=== PATIENT | female | born 1980 | race Caucasian/White ===

== ENCOUNTER → 2018-03-17 | Outpatient (CLI) | payer BC ==
--- NOTE | 2018-03-17 14:00 | Diagnostic Imaging Report ---
PROCEDURE: US OB SINGLE FETUS <14 WKS. TECHNIQUE: Multiple real-time grayscale images were obtained over the gravid uterus in various projections. INDICATION: dating. FINDINGS: There is an intrauterine gestational sac containing a pole. [place]-rump length measurement is 6.3 cm consistent with 12 weeks 6 days gestation. heart rate was recorded at 155 beats per minute. Gestational sac shape is within normal limits. No perigestational sac hemorrhage is seen. Adnexal evaluation does demonstrate a 3.4 cm cyst involving the left ovary. Right adnexa is unremarkable. There is no free fluid. IMPRESSION: 1. Single live IUP 12 weeks 6 days gestational age. Estimated date of confinement sonographically is 09/23/2018. 2. A 3.4 cm left ovarian cyst. Dictated by: Dictated on workstation # [id number]
== END ==
LOC: RAD 12:02
PROVIDERS: ATTEND Family Medicine
DX: Z34.91 Encounter for supervision of normal pregnancy, unspecified, first trimester (principal); Z3A.12 12 weeks gestation of pregnancy
CPT/HCPCS: 76801

== ENCOUNTER → 2018-05-13 | Outpatient (CLI) | payer BC ==
--- NOTE | 2018-05-13 16:24 | Diagnostic Imaging Report ---
INDICATION: anatomy survey. TECHNIQUE: Multiple real-time grayscale images were obtained over the gravid uterus. COMPARISON: 03/17/2018. FINDINGS: There is a single live intrauterine in cephalic presentation. The amniotic fluid volume appears visually appropriate. Placenta is anteriorly located and there is no previa. anatomy survey was performed and the following structures are visualized and normal: Cerebellum, cisterna magna, cerebral ventricles, four-chamber heart, urinary bladder, umbilical cord insertion, three-vessel cord, kidneys, spine, stomach, and all four extremities. Attempt to image the maternal adnexa was limited due to advanced gestational age. Biometrical measurements are as follows: Biparietal 5.0 cm, age 21 weeks 1 days. Head circumference 18.2 cm, age 20 weeks 4 days. Abdominal circumference 14.9 cm, age 20 weeks 2 days. Femur length 3.3 cm, age 20 weeks 3 days. Sonographic estimate age: 20 weeks 5 days. Sonographic estimated date of delivery: 09/25/18. Estimated Weight: 347 gm (+/- 51 gm). LMP percentile: 15%. heart rate: 143 beats per minute. number: 1 of 1. IMPRESSION: 1. Single live intrauterine with normal anatomy survey. 2. Fetus is at the 15th percentile for weight based on gestational age. Dictated by: Dictated on workstation # [id number]
== END ==
LOC: RAD 09:57
PROVIDERS: ATTEND Family Medicine
DX: Z36.89 Encounter for other specified antenatal screening (principal); Z3A.20 20 weeks gestation of pregnancy
CPT/HCPCS: 76805

== ENCOUNTER 2018-09-27 19:30 | Inpatient (IN) | payer BC ==
[~2018-09-27] VITALS: Ht 172.7 cm; Wt 94.3 kg
--- NOTE | 2018-09-27 19:30 | NUR ---
KAYLIE MATA presented to unit via from ED, accompanied by , with c/o INDUCTION. KAYLIE MATA weighed, gowned, voided, and to bed. EFHM and TOCO applied, VS taken. KAYLIE MATA oriented to bed controls, call light, TV, heat, and A/C controls.
--- NOTE | 2018-09-27 19:48 | NUR ---
Dr. Moon called and informed that pt has arrived. Orders received. states that if pt would like to get up and walk around monitoring can be done 15 minutes every hour after 1 hour of initial strip after Cytotec is given.
[2018-09-27] MEDS ORDERED: MISOPROSTOL 100 MCG (CYTOTEC) TAB PO ONE (20:00)
[2018-09-27] MEDS ORDERED: MINERAL OIL CONCENTRATE 99.9% 15 ML UDC TOP PRN (20:00)
[2018-09-27] MEDS ORDERED: LACTATED RINGERS 1,000 ML IV SCH (20:00)
[2018-09-27] MEDS ORDERED: D5 LR IV SOLUTION 1,000 ML IV SCH (20:06)
[2018-09-27 20:10] VITALS: BP 130/73
--- OUTSIDE RECORDS SUMMARY | 2018-09-27 20:49 | XMS REPORT ---
Author Author RAY MORRISON Organization [facility] Address [address] [place] [address] Care Team Providers Care Bag Shop Worker Name Role Phone RAY MORRISON Unavailable PROBLEMS Unknown Problems ALLERGIES No Information ENCOUNTERS Encounter Location Date Diagnosis [place] [address] [id number] [place] [address] 55613- 9587 Jun, [place] [address] 8[address]68- 2393 Jun, 25 weeks gestation of Z3A.25 [place] [id number] [place] [address] 02173- 0140 May, care in second trimester Z34.92 and 25 weeks gestation of Z3A.25 [place] [address] [place] [id number] [place] [address] 80497- 6949 May, care in second trimester Z34.92 and 19 weeks gestation of Z3A.19 [place] [id number] [place] [address] 45949- 9868 Mar, care in second trimester Z34.92 and 14 weeks gestation of Z3A.14 [place] [id number] [place] [address] 99072- 5084 Mar, Normal , first Z34.00 [place] [id number] [place] [address] 53164- 0351 Mar, [place] [id number] [place] [address] 29013- 1949 Feb, Normal , first Z34.00 ; care, first in first trimester Z34.01 and Elderly primigravida in first trimester O09.511 [facility] [address] [address] Feb, [facility] [id number] [place] [address] 15238- 4415 Feb, [facility] [id number] [place] [address] 43028- 1751 Feb, [facility] [id number] [place] [address] 33310- 7579 Feb, Encounter for test, result unknown Z32.00 [facility] [id number] [place] [address] 45448- 5992 Feb, Irritant contact dermatitis, unspecified trigger L24.9 [facility] [id number] [place] [address] 18495- 4431 May, Poison douglas L23.7 [facility] [id number] [place] [address] 93774- 5278 11 Jan, 2015 Routine gynecological examination V72.31 ; Pap test, as part of routine gynecological examination V76.2 ; Breast cancer screening V76.10 and Laboratory exam ordered as part of routine general medical examination V72.62 [facility] [address] [address]- 8790 Jan, [facility] [address] [address]- 4323 14 Nov, 2014 [facility] [address] [place] [address] 36736- 0074 13 Nov, 2014 [facility] [address] [address]- 4655 Jan, [facility] [id number] [place] [address] 11687- 7218 Jan, [facility] [address] [address]- 8607 Nov, [facility] [address] [place] [address] [place] [address] 2546 Nov, [facility] [address] [facility] [id number] [address]- 4188 May, [facility] [address] [facility] [id number] [address]- 1022 May, [facility] [address] [facility] [id number] [address]- 1458 May, [facility] [address] [facility] [id number][place] [address]- 6413 May, IMMUNIZATIONS No Known Immunizations SOCIAL HISTORY Never Assessed REASON FOR VISIT OB 4 wk f/u -- bean clements PLAN OF CARE Activity Details Follow Up 4 Weeks Reason: VITAL SIGNS Height 68 in 2018-06-15 Weight 192.0 lbs 2018-06-15 Temperature 97.2 degrees Fahrenheit 2018-06-15 BMI 29.194 kg/m2 2018-06-15 Blood pressure systolic 118 mmHg 2018-06-15 Blood pressure diastolic 76 mmHg 2018-06-15 MEDICATIONS Medication Instructions Dosage Frequency Start Date End Date Duration Status Multivitamin Active RESULTS No Results PROCEDURES Procedure Date Ordered Result Body Site URINE-NO MICRO Jun 15, 2018 GLUCOSE TEST Jun 15, 2018 VENIPUNCT, ROUTINE* Jun 15, 2018 INSTRUCTIONS MEDICATIONS ADMINISTERED No Known Medications MEDICAL (GENERAL) HISTORY Type Description Date Medical History Seasonal Allergies
--- OUTSIDE RECORDS SUMMARY | 2018-09-27 20:49 | XMS REPORT ---
Author Author RAY MORRISON Organization [facility] Address [address] [place] [address] Care Team Providers Care Watch Supervisor Name Role Phone RAY MORRISON Unavailable PROBLEMS Unknown Problems ALLERGIES No Information ENCOUNTERS Encounter Location Date Diagnosis [place] [id number] [place] [address] 36192- 6201 May, [place] [address] [place] [id number] [place] [address] 02404- 2466 Mar, care in second trimester Z34.92 and 14 weeks gestation of Z3A.14 [place] [address] [place] [id number] [place] [address] 98647- 2332 Mar, Normal , first Z34.00 [place] [address] [place] [address] 01959- 1145 Mar, [place] [address] [place] [address] [id number] [place] [address] 38296- 4999 Feb, Normal , first Z34.00 ; care, first in first trimester Z34.01 and Elderly primigravida in first trimester O09.511 [place] [address] [place] [address] 02372- 0006 Feb, [facility] [address], [place] [address]- 3082 Feb, [facility] [address] [id number] [place] [address] 34775- 6786 Feb, [facility] [address] [place] [address] 63105- 5997 Feb, Encounter for test, result unknown Z32.00 [facility] [address], [place] [address]- 9316 Feb, Irritant contact dermatitis, unspecified trigger L24.9 [facility] [address] [id number] [address]- 2797 24 May, 2016 Poison douglas L23.7 [facility] [address] [id number] [address]- 6159 11 Jan, 2015 Routine gynecological examination V72.31 ; Pap test, as part of routine gynecological examination V76.2 ; Breast cancer screening V76.10 and Laboratory exam ordered as part of routine general medical examination V72.62 [facility] [address] [place] [address] 10047- 9692 10 Jan, 2015 [facility] [address] [place] [address] 68337- 4898 14 Nov, 2014 [facility] [id number] [place] [address] 78731- 9696 Nov, [facility] [address], [place] [address]- 4110 Jan, [facility] [address], [place] [address]- 1754 Jan, [facility] [address], [place] [address]- 8932 Nov, [facility] [address], [place] [address]- 5043 Nov, [facility] [address], [place] [address]- 8563 May, [facility] [address] 7353 May, [facility] [address], [place] [address]- 3239 May, [facility] [address], [place] [address]- 9102 May, IMMUNIZATIONS No Known Immunizations SOCIAL HISTORY Never Assessed REASON FOR VISIT QNatal testing PLAN OF CARE VITAL SIGNS MEDICATIONS Unknown Medications RESULTS No Results PROCEDURES No Known procedures INSTRUCTIONS MEDICATIONS ADMINISTERED No Known Medications MEDICAL (GENERAL) HISTORY Type Description Date Medical History Seasonal Allergies
--- OUTSIDE RECORDS SUMMARY | 2018-09-27 20:49 | XMS REPORT ---
Author Author RAY MORRISON [facility] Address [address] [place] [address] Care Team Providers Care Cut Plug Packer Name Role Phone RAY MORRISON Unavailable PROBLEMS Unknown Problems ALLERGIES Substance Reaction Event Type Date Status poison douglas hives Non Drug Allergy Feb, Active ENCOUNTERS Encounter Location Date Diagnosis [facility] [id number] [place] [address] 94194- 5392 May, [facility] [id number] [place] [address] 00953- 9433 Mar, care in second trimester Z34.92 and 14 weeks gestation of Z3A.14 [facility] [id number] [place] [address] 73263- 2544 Mar, Normal , first Z34.00 [facility] [id number] [place] [address] 83883- 5429 Mar, [facility] [id number] [place] [address] 25280- 3343 Feb, Normal , first Z34.00 ; care, first in first trimester Z34.01 and Elderly primigravida in first trimester O09.511 [facility] [id number] [place] [address] 30739- 3887 Feb, [facility] [id number] [place] [address] 11218- 3985 Feb, [facility] [id number] [place] [address] 64660- 6278 Feb, [facility] [id number] [place] [address] 99584- 3748 Feb, Encounter for test, result unknown Z32.00 [facility] [address], [place] [address]- 7816 Feb, Irritant contact dermatitis, unspecified trigger L24.9 [facility] [id number] [address]- 8575 24 May, 2016 Poison douglas L23.7 [facility] [id number] [place] [address] 03761- 0887 11 Jan, 2015 Routine gynecological examination V72.31 ; Pap test, as part of routine gynecological examination V76.2 ; Breast cancer screening V76.10 and Laboratory exam ordered as part of routine general medical examination V72.62 [facility] [address] [place] [address] 68657- 2994 10 Jan, 2015 [facility] [address] [place] [address] 97107- 0302 14 Nov, 2014 [facility] [id number] [place] [address] 18252- 0329 13 Nov, 2014 [facility] [address] [place] [address] 56681- 0465 Jan, [facility] [address] [address]- 4858 Jan, [facility] [address], [place] [address]- 8130 Nov, [facility] [address], [place] [address]- 3119 Nov, [facility] [address], [place] [address]- 8701 May, [facility] [address], [place] [address]- 1301 May, [facility] [address], [place] [address]- 0768 May, [facility] [id number] [address]- 5148 May, IMMUNIZATIONS No Known Immunizations SOCIAL HISTORY Never Assessed REASON FOR VISIT OB-intake -- bean clements PLAN OF CARE Activity Details Follow Up 4 Weeks Reason: Pending Test Ultrasound : OB, Early <14 WEEKS VITAL SIGNS Height 68 in 2018-03-09 Weight 187.6 lbs 2018-03-09 Temperature 98.0 degrees Fahrenheit 2018-03-09 Heart Rate 78 bpm 2018-03-09 Respiratory Rate 18 2018-03-09 BMI 28.524 kg/m2 2018-03-09 Blood pressure systolic 120 mmHg 2018-03-09 Blood pressure diastolic 70 mmHg 2018-03-09 MEDICATIONS Medication Instructions Dosage Frequency Start Date End Date Duration Status Triamcinolone Acetonide 0.025 % Externally Once a day apply thin layer to upper chest and back 24h Feb, 10 days Not-Taking Multivitamin Active Triamcinolone Acetonide 0.1 % Externally Twice a day 1 application to affected area 12h May, Not-Taking RESULTS No Results PROCEDURES Procedure Date Ordered Result Body Site CULTURE, BACTERIA, OTHER March 09, 2018 ASSAY THYROID STIM HORMONE March 09, 2018 RUBELLA ANTIBODY March 09, 2018 URINALYSIS, AUTO, W/O SCOPE March 09, 2018 DRUG TEST PRSMV DIR OPT OBS March 09, 2018 VENIPUNCT, ROUTINE* March 09, 2018 BLOOD TYPING, ABO March 09, 2018 BLOOD TYPING, RH (D) March 09, 2018 COMPLETE CBC W/AUTO DIFF WBC March 09, 2018 No Charge March 09, 2018 URINE CULTURE/COLONY COUNT March 09, 2018 RBC ANTIBODY SCREEN March 09, 2018 TRICHOMONAS ASSAY W/OPTIC March 09, 2018 INSTRUCTIONS MEDICATIONS ADMINISTERED No Known Medications MEDICAL (GENERAL) HISTORY Type Description Date Medical History Seasonal Allergies
--- OUTSIDE RECORDS SUMMARY | 2018-09-27 20:49 | XMS REPORT ---
Author Author RAY MORRISON Organization [facility] Address [address] [place] [address] Care Team Providers Care Grinder Set Up Operator Centerless Name Role Phone RAY MORRISON Unavailable PROBLEMS Unknown Problems ALLERGIES No Information ENCOUNTERS Encounter Location Date Diagnosis [place] [id number] [place] [id number] [place] [address] 76236- 5125 Jun, [place] [address] 97703- 0815 Jun, 25 weeks gestation of Z3A.25 [place] [address] [id number] [place] [address] 34816- 1140 May, care in second trimester Z34.92 and 25 weeks gestation of Z3A.25 [place] [address] [place] [id number] [place] [address] 97899- 5661 May, care in second trimester Z34.92 and 19 weeks gestation of Z3A.19 [place] [address] [id number] [place] [address] 36575- 7888 Mar, care in second trimester Z34.92 and 14 weeks gestation of Z3A.14 [place] [address] [id number] [place] [address] 10840- 7414 Mar, Normal , first Z34.00 [place] [address] [id number] [place] [address] 46767- 8070 Mar, [place] [address] [id number] [place] [address] 51434- 5768 Feb, Normal , first Z34.00 ; care, first in first trimester Z34.01 and Elderly primigravida in first trimester O09.511 [facility] [address], [place] [address]- 5285 Feb, [facility] [address] [id number] [place] [address] 32745- 5430 Feb, [facility] [address] [id number] [place] [address] 81394- 8116 Feb, [facility] [address] [id number] [place] [address] 64501- 4571 Feb, Encounter for test, result unknown Z32.00 [facility] [address] [place] [address] [id number] [place] [address] 83796- 9250 Feb, Irritant contact dermatitis, unspecified trigger L24.9 [facility] [address] [address] [id number] [place] [address] 13277- 9827 May, Poison douglas L23.7 [facility] [address] [address] [id number] [place] [address] 21616- 3625 11 Jan, 2015 Routine gynecological examination V72.31 ; Pap test, as part of routine gynecological examination V76.2 ; Breast cancer screening V76.10 and Laboratory exam ordered as part of routine general medical examination V72.62 [facility] [address], [place] [address]- 8836 Jan, [facility] [address], [place] [address]- 2979 14 Nov, 2014 [facility] [address] [place] [address] 24468- 1767 13 Nov, 2014 [facility] [address], [place] [address]- 4331 Jan, [facility] [address] [address] [id number] [place] [address] 72233- 5521 Jan, [facility] [address], [place] [address]- 6769 Nov, [facility] [address] [place] [address] [place] [address]- 0836 Nov, [facility] [address] [facility] [id number], [place] [address]- 2653 May, [facility] [address] [place] [id number], [place] [address]- 4453 May, [facility] [address] [facility] [id number] [address]- 1148 May, [facility] [address] [facility] [id number], [place] [address]- 0599 May, IMMUNIZATIONS No Known Immunizations SOCIAL HISTORY Never Assessed REASON FOR VISIT lab order PLAN OF CARE VITAL SIGNS MEDICATIONS Unknown Medications RESULTS No Results PROCEDURES No Known procedures INSTRUCTIONS MEDICATIONS ADMINISTERED No Known Medications MEDICAL (GENERAL) HISTORY Type Description Date Medical History Seasonal Allergies
--- OUTSIDE RECORDS SUMMARY | 2018-09-27 20:49 | XMS REPORT ---
Author Author RAY MORRISON Organization [facility] Address [address] [place] [address] Care Team Providers Care Supervising Film Or Videotape Editor Name Role Phone RAY MORRISON Unavailable PROBLEMS Unknown Problems ALLERGIES No Information ENCOUNTERS Encounter Location Date Diagnosis [place] [address] [address]36- 2875 Jun, [place] [address] 46968- 1810 Jun, [place] [address] 36096- 5619 Jun, [facility] [address] 27976- 6411 Jun, 25 weeks gestation of Z3A.25 [place] [address] 92044- 1284 Jun, 25 weeks gestation of Z3A.25 [place] [address] [place] [address] [id number] [place] [address] 96867- 0019 May, care in second trimester Z34.92 and 25 weeks gestation of Z3A.25 [place] [address] [place] [id number] [place] [address] 60927- 9641 May, care in second trimester Z34.92 and 19 weeks gestation of Z3A.19 [place] [address] 80003- 0763 Mar, care in second trimester Z34.92 and 14 weeks gestation of Z3A.14 [place] [address] [id number] [place] [address] 38153- 3013 Mar, Normal , first Z34.00 [facility] [address], [place] [address]- 9053 Mar, [facility] [id number] [place] [address] 10427- 5654 Feb, Normal , first Z34.00 ; care, first in first trimester Z34.01 and Elderly primigravida in first trimester O09.511 [place] [address] [id number] [place] [address] 28874- 9984 Feb, [facility] [address] [id number] [place] [address] 97252- 3264 Feb, [place] [address] [address] [id number] [place] [address] 29213- 2059 Feb, [place] [address] [address] [id number] [place] [address] 46625- 3262 Feb, Encounter for test, result unknown Z32.00 [place] [address] [id number] [place] [address] 04219- 0100 Feb, Irritant contact dermatitis, unspecified trigger L24.9 [place] [id number] [place] [address] 98463- 7126 May, Poison douglas L23.7 [place] [address] [id number] [place] [address] 43495- 3240 11 Jan, 2015 Routine gynecological examination V72.31 ; Pap test, as part of routine gynecological examination V76.2 ; Breast cancer screening V76.10 and Laboratory exam ordered as part of routine general medical examination V72.62 [place] [address] [id number] [place] [address] 86934- 4334 Jan, [place] [id number] [place] [address] 80111- 5468 14 Nov, 2014 [place] [id number] [place] [address] 31811- 4163 Nov, [place] [address], [place] [address]- 2982 Jan, [facility] [address] [address] 0753 Jan, [facility] [address] [address]- 3821 Nov, [facility] [address] [place] [address] 57633- 6887 Nov, [facility] [address] [place] [address] 75958- 6251 May, [facility] [address] [place] [address] 97407- 2677 May, [facility] [address], [place] [address]- 3392 May, [facility] [address], [place] [address]- 3164 May, IMMUNIZATIONS No Known Immunizations SOCIAL HISTORY Never Assessed REASON FOR VISIT PLAN OF CARE VITAL SIGNS MEDICATIONS Unknown Medications RESULTS No Results PROCEDURES No Known procedures INSTRUCTIONS MEDICATIONS ADMINISTERED No Known Medications MEDICAL (GENERAL) HISTORY Type Description Date Medical History Seasonal Allergies
--- OUTSIDE RECORDS SUMMARY | 2018-09-27 20:49 | XMS REPORT ---
Author Author RAY MORRISON Organization [facility] Address [address] [place] [address] Care Team Providers Care Counsellors Name Role Phone RAY MORRISON Unavailable PROBLEMS Unknown Problems ALLERGIES No Information ENCOUNTERS Encounter Location Date Diagnosis [place] [address] 46743- 3861 Jun, [place] [address] 85948- 8743 Jun, [place] [address] 07632- 6162 Jun, [facility] [address] 96666- 6067 Jun, 25 weeks gestation of Z3A.25 [place] [address] 68368- 1328 Jun, 25 weeks gestation of Z3A.25 [place] [address] [place] [id number] [place] [address] 85014- 5700 May, care in second trimester Z34.92 and 25 weeks gestation of Z3A.25 [place] [address] [place] [id number] [place] [address] 40207- 9011 May, care in second trimester Z34.92 and 19 weeks gestation of Z3A.19 [place] [address] 72839- 4586 Mar, care in second trimester Z34.92 and 14 weeks gestation of Z3A.14 [place] [address] [place] [id number] [place] [address] 39243- 8742 Mar, Normal , first Z34.00 [facility] [address], [place] [address] 8813 Mar, [facility] [address] [place] [id number] [place] [address] 93262- 7082 Feb, Normal , first Z34.00 ; care, first in first trimester Z34.01 and Elderly primigravida in first trimester O09.511 [place] [address] [place] [id number] [place] [address] 66944- 7980 Feb, [facility] [address] [place] [id number] [place] [address] 92191- 9889 Feb, [place] [address] [place] [id number] [place] [address] 48316- 3998 Feb, [place] [address] [place] [id number] [place] [address] 92018- 3226 Feb, Encounter for test, result unknown Z32.00 [place] [address] [place] [id number] [place] [address] 17839- 4359 Feb, Irritant contact dermatitis, unspecified trigger L24.9 [place] [address] [place] [id number] [place] [address] 63332- 5502 May, Poison douglas L23.7 [place] [address] [place] [id number] [place] [address] 73547- 5421 11 Jan, 2015 Routine gynecological examination V72.31 ; Pap test, as part of routine gynecological examination V76.2 ; Breast cancer screening V76.10 and Laboratory exam ordered as part of routine general medical examination V72.62 [place] [address] [place] [id number] [place] [address] 33493- 5488 Jan, [place] [address] [place] [id number] [place] [address] 41493- 7545 14 Nov, 2014 [place] [address] [place] [id number] [place] [address] 72289- 9871 Nov, [place] [address], [place] [address]- 7865 Jan, [facility] [address], [place] [address] 1923 Jan, [facility] [address], [place] [address]- 0981 Nov, [facility] [address] [place] [address] 19802- 3213 Nov, [facility] [address] [place] [address] 69886- 6309 May, [facility] [address] [place] [address] 04792- 4126 May, [facility] [address], [place] [address]- 5204 May, [facility] [address], [place] [address]- 0741 May, IMMUNIZATIONS No Known Immunizations SOCIAL HISTORY Never Assessed REASON FOR VISIT PLAN OF CARE VITAL SIGNS MEDICATIONS Unknown Medications RESULTS No Results PROCEDURES No Known procedures INSTRUCTIONS MEDICATIONS ADMINISTERED No Known Medications MEDICAL (GENERAL) HISTORY Type Description Date Medical History Seasonal Allergies
--- OUTSIDE RECORDS SUMMARY | 2018-09-27 20:49 | XMS REPORT ---
Author Author RAY MORRISON Organization [facility] Address [address] [place] [address] Care Team Providers Care Dish Maker Name Role Phone RAY MORRISON Unavailable PROBLEMS Unknown Problems ALLERGIES No Information ENCOUNTERS Encounter Location Date Diagnosis [place] [address] [place] [id number] [place] [address] 13894- 5492 Jun, [place] [address] 64063- 4292 Jun, 25 weeks gestation of Z3A.25 [place] [address] [place] [id number] [place] [address] 28148- 3560 Jun, 25 weeks gestation of Z3A.25 [place] [address] [place] [id number] [place] [address] 12523- 4286 May, care in second trimester Z34.92 and 25 weeks gestation of Z3A.25 [place] [address] [place] [id number] [place] [address] 54914- 0919 May, care in second trimester Z34.92 and 19 weeks gestation of Z3A.19 [place] [address] [place] [id number] [place] [address] 52380- 9533 Mar, care in second trimester Z34.92 and 14 weeks gestation of Z3A.14 [place] [address] [place] [id number] [place] [address] 97014- 1256 Mar, Normal , first Z34.00 [place] [address] [place] [id number] [place] [address] 34903- 3674 Mar, [place] [address] [place] [id number] [place] [address] 07215- 6208 Feb, Normal , first Z34.00 ; care, first in first trimester Z34.01 and Elderly primigravida in first trimester O09.511 [facility] [address] [place] [id number] [place] [address] 29985- 0685 Feb, [facility] [address] [place] [id number] [place] [address] 19080- 5322 Feb, [facility] [address] [place] [id number] [place] [address] 52267- 4976 Feb, [place] [address] [place] [id number] [place] [address] 91191- 7027 Feb, Encounter for test, result unknown Z32.00 [place] [address] [place] [id number] [place] [address] 75513- 2379 Feb, Irritant contact dermatitis, unspecified trigger L24.9 [place] [address] [place] [id number] [place] [address] 46423- 1452 May, Poison douglas L23.7 [place] [address] [place] [id number] [place] [address] 01886- 1135 11 Jan, 2015 Routine gynecological examination V72.31 ; Pap test, as part of routine gynecological examination V76.2 ; Breast cancer screening V76.10 and Laboratory exam ordered as part of routine general medical examination V72.62 [place] [address] [place] [id number] [place] [address] 75177- 9206 Jan, [place] [address] [place] [id number] [place] [address] 56277- 0189 Nov, [place] [address] [place] [id number] [place] [address] 90707- 6382 Nov, [place] [address] [place] [id number] [place] [address] 65186- 3220 Jan, [place] [address] [place] [id number] [place] [address] 54541- 3954 Jan, [place] [address] [facility] [id number] 4484 Nov, [facility] [address] [place] [id number] 4616 Nov, [facility] [address] 5292 May, [facility] [address] [address]- 8281 May, [facility] [address] 7362 May, [facility] [address] 8812 May, IMMUNIZATIONS No Known Immunizations SOCIAL HISTORY Never Assessed REASON FOR VISIT Lab (walk-in) PLAN OF CARE Activity Details Pending Test GLUCOSE AVIVA 3 HOUR VITAL SIGNS MEDICATIONS Unknown Medications RESULTS No Results PROCEDURES Procedure Date Ordered Result Body Site GTT-ADDED SAMPLES Jun 20, 2018 GLUCOSE TOLERANCE TEST (GTT) Jun 20, 2018 VENIPUNCT, ROUTINE* Jun 20, 2018 INSTRUCTIONS MEDICATIONS ADMINISTERED No Known Medications MEDICAL (GENERAL) HISTORY Type Description Date Medical History Seasonal Allergies
--- OUTSIDE RECORDS SUMMARY | 2018-09-27 20:49 | XMS REPORT ---
Author Author RAY MORRISON Organization [facility] Address [address] [place] [address] Care Team Providers Care Stock Lifter Name Role Phone RAY MORRISON Unavailable PROBLEMS Unknown Problems ALLERGIES No Information ENCOUNTERS Encounter Location Date Diagnosis [place] [address] 19941- 0673 May, [place] [address] 86802- 7873 May, care in second trimester Z34.92 and 19 weeks gestation of Z3A.19 [place] [address] 57023- 4280 Mar, care in second trimester Z34.92 and 14 weeks gestation of Z3A.14 [place] [address] [place] [id number] [place] [address] 22196- 1123 Mar, Normal , first Z34.00 [place] [address] [place] [id number] [place] [address] 85207- 2068 Mar, [place] [address] [place] [id number] [place] [address] 51088- 3678 Feb, Normal , first Z34.00 ; care, first in first trimester Z34.01 and Elderly primigravida in first trimester O09.511 [place] [address] [place] [id number] [place] [address] 70962- 8885 Feb, [place] [address] [place] [id number] [place] [address] 25454- 3426 Feb, [place] [address] 29021- 7398 Feb, [facility] [address], [place] [address]- 6417 Feb, Encounter for test, result unknown Z32.00 [facility] [address] [place] [id number] [place] [address] 56266- 2283 Feb, Irritant contact dermatitis, unspecified trigger L24.9 [facility] [address] [place] [id number] [place] [address] 00020- 1027 May, Poison douglas L23.7 [facility] [address] [place] [id number] [place] [address] 82173- 6312 11 Jan, 2015 Routine gynecological examination V72.31 ; Pap test, as part of routine gynecological examination V76.2 ; Breast cancer screening V76.10 and Laboratory exam ordered as part of routine general medical examination V72.62 [facility] [address] [place] [id number] [place] [address] 92564- 7121 Jan, [facility] [address] [place] [id number] [place] [address] 23724- 4367 14 Nov, 2014 [facility] [address] [place] [id number] [place] [address] 22376- 9407 Nov, [facility] [address] [place] [id number] [place] [address] 25721- 9293 Jan, [facility] [address], [place] [address]- 1270 Jan, [facility] [address] [place] [id number] [place] [address] 82666- 3183 Nov, [facility] [address] [place] [id number] [place] [address] 19849- 2625 Nov, [facility] [address] [place] [id number] [place] [address] 42311- 4663 May, [facility] [address], [place] [address]- 8432 May, [facility] [address] [place] [id number] [address]- 9447 May, [facility] [address] [facility] [id number] [place] [address]- 2735 May, IMMUNIZATIONS No Known Immunizations SOCIAL HISTORY Never Assessed REASON FOR VISIT OB 4 wk f/u-- bean clements PLAN OF CARE Activity Details Follow Up 4 Weeks Reason: VITAL SIGNS Height 68 in 2018-05-17 Weight 190.7 lbs 2018-05-17 Temperature 97.0 degrees Fahrenheit 2018-05-17 Heart Rate 86 bpm 2018-05-17 Respiratory Rate 18 2018-05-17 BMI 28.996 kg/m2 2018-05-17 Blood pressure systolic 120 mmHg 2018-05-17 Blood pressure diastolic 72 mmHg 2018-05-17 MEDICATIONS Medication Instructions Dosage Frequency Start Date End Date Duration Status Multivitamin Active RESULTS Name Result Date Reference Range UA OB DIP (IN HOUSE) 2018-05-17 Glucose negative Protein trace PROCEDURES Procedure Date Ordered Result Body Site URINE-NO MICRO May 17, 2018 INSTRUCTIONS MEDICATIONS ADMINISTERED No Known Medications MEDICAL (GENERAL) HISTORY Type Description Date Medical History Seasonal Allergies
--- OUTSIDE RECORDS SUMMARY | 2018-09-27 20:49 | XMS REPORT ---
Author Author RAY MORRISON Organization [facility] Address [address] [place] [address] Care Team Providers Care Pastry Supervisor Name Role Phone RAY MORRISON Unavailable PROBLEMS Unknown Problems ALLERGIES No Information ENCOUNTERS Encounter Location Date Diagnosis [place] [address] [place] [address] 80350- 1130 May, [place] [address] [place] [id number] [place] [address] 50561- 6478 Mar, care in second trimester Z34.92 and 14 weeks gestation of Z3A.14 [place] [address] [place] [id number] [place] [address] 71146- 7068 Mar, Normal , first Z34.00 [place] [address] [place] [address] 65865- 2422 Mar, [place] [address] [place] [id number] [place] [address] 67590- 8167 Feb, Normal , first Z34.00 ; care, first in first trimester Z34.01 and Elderly primigravida in first trimester O09.511 [place] [address] [place] [address] 50988- 9583 Feb, [facility] [address], [place] [address]- 4177 Feb, [facility] [address] [place] [id number] [place] [address] 99326- 2165 Feb, [facility] [address] [place] [address] 11275- 9122 Feb, Encounter for test, result unknown Z32.00 [facility] [address], [place] [address]- 0231 Feb, Irritant contact dermatitis, unspecified trigger L24.9 [facility] [address] [place] [id number], [place] [address]- 9860 24 May, 2016 Poison douglas L23.7 [facility] [address] [place] [address] [address], [place] [address]- 7056 11 Jan, 2015 Routine gynecological examination V72.31 ; Pap test, as part of routine gynecological examination V76.2 ; Breast cancer screening V76.10 and Laboratory exam ordered as part of routine general medical examination V72.62 [facility] [address] [place] [address] 58113- 2863 10 Jan, 2015 [facility] [address] [place] [address] 01245- 3660 14 Nov, 2014 [facility] [address] [place] [id number] [place] [address] 82552- 6286 Nov, [facility] [address], [place] [address]- 2506 Jan, [facility] [address], [place] [address]- 0769 Jan, [facility] [address], [place] [address]- 0121 Nov, [facility] [address], [place] [address]- 4503 Nov, [facility] [address], [place] [address]- 7487 May, [facility] [address]- 9102 May, [facility] [address], [place] [address]- 3027 May, [facility] [address], [place] [address]- 6393 May, IMMUNIZATIONS No Known Immunizations SOCIAL HISTORY Never Assessed REASON FOR VISIT Lab (walk-in) PLAN OF CARE VITAL SIGNS MEDICATIONS Unknown Medications RESULTS No Results PROCEDURES Procedure Date Ordered Result Body Site CHRMOML ANEUPLOIDY Apr 06, 2018 INSTRUCTIONS MEDICATIONS ADMINISTERED No Known Medications MEDICAL (GENERAL) HISTORY Type Description Date Medical History Seasonal Allergies
--- OUTSIDE RECORDS SUMMARY | 2018-09-27 20:49 | XMS REPORT ---
Author Author RAY MORRISON Organization [facility] Address [address] [place] [address] Care Team Providers Care Tobacco Flavorer Name Role Phone RAY MORRISON Unavailable PROBLEMS Unknown Problems ALLERGIES Substance Reaction Event Type Date Status poison douglas hives Non Drug Allergy Jun, Active ENCOUNTERS Encounter Location Date Diagnosis [facility] [address] 20188- 6557 Jul, [facility] [address] [place] [id number] [place] [address] 78335- 1733 Jun, 29 weeks gestation of Z3A.29 and Third trimester Z34.93 [facility] [address] [place] [address] [id number] [place] [address] 62458- 7212 Jun, [facility] [address] [place] [address] [id number] [place] [address] 64448- 3442 Jun, [facility] [address] [place] [id number] [place] [address] 36315- 9938 Jun, 25 weeks gestation of Z3A.25 [facility] [address] [place] [id number] [place] [address] 21944- 5761 Jun, 25 weeks gestation of Z3A.25 [facility] [address] [place] [id number] [place] [address] 06076- 2165 May, care in second trimester Z34.92 and 25 weeks gestation of Z3A.25 [facility] [address] [place] [address] [id number] [place] [address] 56839- 4714 May, care in second trimester Z34.92 and 19 weeks gestation of Z3A.19 [facility] [address] [place] [id number] [place] [address] 35251- 7407 Mar, care in second trimester Z34.92 and 14 weeks gestation of Z3A.14 [place] [address] [place] [address] [id number] [place] [address] 80852- 3356 Mar, Normal , first Z34.00 [place] [address] [place] [id number] [place] [address] 54060- 6818 Mar, [place] [address] [place] [address] [id number] [place] [address] 06174- 6891 Feb, Normal , first Z34.00 ; care, first in first trimester Z34.01 and Elderly primigravida in first trimester O09.511 [place] [address] [place] [id number] [place] [address] 70112- 9729 Feb, [place] [address] [place] [id number] [place] [address] 77010- 5531 Feb, [place] [address] [place] [id number] [place] [address] 59277- 9549 Feb, [place] [address] [place] [id number] [place] [address] 87480- 1555 Feb, Encounter for test, result unknown Z32.00 [place] [address] [place] [id number] [place] [address] 81243- 6862 Feb, Irritant contact dermatitis, unspecified trigger L24.9 [place] [address] [place] [id number] [place] [address] 47674- 1702 May, Poison douglas L23.7 [place] [address] [place] [id number] [place] [address] 27844- 2338 11 Jan, 2015 Routine gynecological examination V72.31 ; Pap test, as part of routine gynecological examination V76.2 ; Breast cancer screening V76.10 and Laboratory exam ordered as part of routine general medical examination V72.62 [place] [address] [place] [id number] [place] [address] 54528- 5057 Jan, [facility] [address] [address]- 8311 14 Nov, 2014 [facility] [address] [address]- 6399 Nov, [facility] [address] [address]- 2458 Jan, [facility] [address] [place] [id number] [place] [address] 34768- 1996 Jan, [facility] [address] [place] [address] 33310- 6726 Nov, [facility] [address] [place] [id number] [place] [address] 80935- 0101 Nov, [facility] [address] [place] [id number] [place] [address] 84470- 7594 May, [facility] [address] [place] [address] 96351- 6349 May, [facility] [address] [address]- 2007 May, [facility] [address] [address]- 6295 May, IMMUNIZATIONS No Known Immunizations SOCIAL HISTORY Never Assessed REASON FOR VISIT ob 4 wk f/u, ob dip, verify meds, vitals Tiffanie WANG PLAN OF CARE Activity Details Follow Up 2 Weeks Reason: VITAL SIGNS Height 68 in 2018-07-13 Weight 198.1 lbs 2018-07-13 Temperature 97.4 degrees Fahrenheit 2018-07-13 Heart Rate 77 bpm 2018-07-13 Respiratory Rate 20 2018-07-13 Oximetry 99 % 2018-07-13 BMI 30.121 kg/m2 2018-07-13 Blood pressure systolic 115 mmHg 2018-07-13 Blood pressure diastolic 64 mmHg 2018-07-13 MEDICATIONS Medication Instructions Dosage Frequency Start Date End Date Duration Status Multivitamin Active RESULTS Name Result Date Reference Range UA OB DIP (IN HOUSE) 2018-07-13 Glucose negative Protein trace PROCEDURES Procedure Date Ordered Result Body Site URINE-NO MICRO Jul 13, 2018 INSTRUCTIONS MEDICATIONS ADMINISTERED No Known Medications MEDICAL (GENERAL) HISTORY Type Description Date Medical History Seasonal Allergies
--- OUTSIDE RECORDS SUMMARY | 2018-09-27 20:50 | XMS REPORT ---
Author Author FLORES RUBIN [facility] Address [address] [place] [address] Care Team Providers Care Waste Machine Offbearer Name Role Phone FLORES RUBIN Unavailable PROBLEMS Unknown Problems ALLERGIES Substance Reaction Event Type Date Status poison douglas hives Non Drug Allergy Feb, Active ENCOUNTERS Encounter Location Date Diagnosis [place] [address] [address] Feb, Irritant contact dermatitis, unspecified trigger L24.9 [place] [address] [address] May, Poison douglas L23.7 [facility] [address] [place] [id number] [place] [address]- [address] 11 Jan, 2015 Routine gynecological examination V72.31 ; Pap test, as part of routine gynecological examination V76.2 ; Breast cancer screening V76.10 and Laboratory exam ordered as part of routine general medical examination V72.62 [place] [address] [place] [id number] [place] [address]- [address] Jan, [place] [address] [place] [id number] [place] [address] 42404- 6658 Nov, [place] [address] [place] [place] [id number] [place] [address] 80163- 9787 Nov, [place] [address] [address] Jan, [place] [address] [place] [id number] [place] [address] 21272- 1123 Jan, [place] [address] [place] [id number] [place] [address]- 8673 Nov, [facility] [address] [facility] [id number] [place] [address] Nov, [facility] [address] [facility] [id number], [place] [address] May, [facility] [address] [facility] [id number], [place] [address] May, [facility] [address] [facility] [id number], [place] [address] May, [facility] [address] [facility] [id number], [place] [address] May, IMMUNIZATIONS No Known Immunizations SOCIAL HISTORY Never Assessed REASON FOR VISIT Rash, pt. states rash on shoulder, chest, cheeks, left ear, and puffiness on eyes, pt. states rash seems to be worse in the morning when she wakes up PLAN OF CARE Activity Details Follow Up prn Reason:needs to est. care VITAL SIGNS Height 68 in 2017-03-10 Weight 187.0 lbs 2017-03-10 Temperature 97.6 degrees Fahrenheit 2017-03-10 Heart Rate 70 bpm 2017-03-10 Respiratory Rate 18 2017-03-10 BMI 28.43 kg/m2 2017-03-10 Blood pressure systolic 106 mmHg 2017-03-10 Blood pressure diastolic 77 mmHg 2017-03-10 MEDICATIONS Medication Instructions Dosage Frequency Start Date End Date Duration Status Cetirizine HCl 10 mg Orally Once a day 1 tablet 24h Feb, May, 90 days Active PredniSONE 10 mg Orally Once a day 4 tabs 24h Feb, Feb, 05 days Active Triamcinolone Acetonide 0.025 % Externally Once a day apply thin layer to upper chest and back 24h Feb, 10 days Active RESULTS No Results PROCEDURES No Known procedures INSTRUCTIONS MEDICATIONS ADMINISTERED No Known Medications
--- OUTSIDE RECORDS SUMMARY | 2018-09-27 20:50 | XMS REPORT | Continuity of Care Document ---
Author Author [facility] Address Unknown Phone Unavailable Allergies Active Description Code Type Severity Reaction Onset Reported/Identified Relationship to Patient Clinical Status Yes No Known Drug Allergies [id number] Drug Allergy Unknown N/A 09/27/2018 Medications There is no data. Problems Date Dx Coded Attending Type Code Diagnosis Diagnosed By 06/15/2012 372.00 ACUTE CONJUNCTIVITIS UNSPECIFIED 06/15/2012 V15.09 PERSONAL HISTORY OF OTHER ALLERGY OTHER THAN TO MEDICINAL AGENTS 06/15/2012 KANDI DASILVA APRN R 372.00 ACUTE CONJUNCTIVITIS UNSPECIFIED 06/15/2012 CHANNING DASILVA APRNINA R V15.09 PERSONAL HISTORY OF OTHER ALLERGY OTHER THAN TO MEDICINAL AGENTS 06/15/2012 ELIESER ROMAN APRN R 372.00 ACUTE CONJUNCTIVITIS UNSPECIFIED 06/15/2012 ALMA ROMAN APRNIA R V15.09 PERSONAL HISTORY OF OTHER ALLERGY OTHER THAN TO MEDICINAL AGENTS 11/24/2013 CHANNING DASILVA APRNINA R 372.30 CONJUNCTIVITIS UNSPECIFIED 11/24/2013 CHANNING DASILVA APRNINA R 477.0 ALLERGIC RHINITIS DUE TO POLLEN 11/24/2013 ALMA ROMAN APRNIA R 372.30 CONJUNCTIVITIS UNSPECIFIED 11/24/2013 ELIESER ROMAN APRN R 477.0 ALLERGIC RHINITIS DUE TO POLLEN 01/22/2014 ELIESER ROMAN APRN R 692.6 POISON ELIZABETH 05/14/2018 RAY MORRISON MD Ot Z36.89 ENCOUNTER FOR OTHER SPECIFIED 05/14/2018 RAY MORRISON MD, Ot Z3A.20 20 WEEKS GESTATION OF 05/25/2018 RAY MORRISON MD, Ot Z36.89 ENCOUNTER FOR OTHER SPECIFIED 05/25/2018 RAY MORRISON MD, Ot Z3A.20 20 WEEKS GESTATION OF Procedures There is no data. Results Test Result Range CULTURE, GENITAL - 03/09/18 10:45 CULTURE, GENITAL SEE NOTE NRG GLUCOSE AVIVA 1 HOUR - 06/15/18 18:35 GLUCOSE, POSTPRANDIAL/ 1 HOUR 142 mg/dL See Note: GLUCOSE AVIVA 3 HOUR - 06/20/18 11:16 TIME 1 0815 NRG SPECIMEN 1 70 mg/dL 65-99 TIME 2 0915 NRG SPECIMEN 2 98 mg/dL NRG TIME 3 1015 NRG SPECIMEN 3 92 mg/dL NRG TIME 4 1115 NRG SPECIMEN 4 85 mg/dL NRG COMMENT NRG Encounters ACCT No. Visit Date/Time Discharge Status Pt. Type Provider Facility Loc./Unit Complaint [id number] 01/22/2014 13:10:00 01/22/2014 23:59:59 CLS Outpatient ELIESER ROMAN APRN [id number] 11/24/2013 15:09:00 11/24/2013 23:59:59 CLS Outpatient KANDI DASILVA APRN [id number] 06/15/2012 10:38:00 06/15/2012 23:59:59 CLS Outpatient [id number] 05/13/2018 09:57:00 05/13/2018 23:59:59 CLS Outpatient RAY MORRISON MD [facility] RAD 14 WEEKS OF GESTATION OF [id number] 09/27/2018 19:30:00 ACT Inpatient RAY MORRISON MD [facility] LDRP INDUCTION [id number] 09/21/2018 10:40:00 09/21/2018 23:59:59 CLS Outpatient SHRUTHI LAMONTAMBROSIO [facility] [id number] 06/20/2018 08:20:00 Document Registration [id number] 06/15/2018 10:20:00 Document Registration [id number] 03/09/2018 09:40:00 Document Registration
--- OUTSIDE RECORDS SUMMARY | 2018-09-27 20:50 | XMS REPORT ---
Author Author EDSON POWERS Organization [employer] Address Unknown Phone Unavailable Care Team Providers Care Clearing House Clerk Name Role Phone EDSON POWERS CP Unavailable Allergies No Known Allergies Problems Problem Type Condition Code Onset Dates Condition Status Assessment Poison douglas L23.7 Active Medications Medication Code System Code Instructions Start Date End Date Status Dosage PredniSONE [facility] [address]-63 20 mg Orally Once a day Jun 08, 2016 Jun 13, 2016 2 tablets Triamcinolone Acetonide [facility] [address]-85 0.1 % Externally Twice a day Jun 08, 2016 1 application to affected area Procedures Procedure Coding System Code Date Office Visit, Est Pt., Level 3 CPT-4 22578 Jun 08, 2016 Vital Signs Date/Time: Jun 08, 2016 Cardiac Monitoring Heart Rate 70 bpm Weight 184 lbs Height 68 in BMI 27.97 Index Blood Pressure Diastolic 80 mmHg Blood Pressure Systolic 110 mmHg Results No Known Results Summary Purpose [employer] Submission
--- OUTSIDE RECORDS SUMMARY | 2018-09-27 20:50 | XMS REPORT ---
Author Author NATY YANG [facility] Address [address] [place] [address] Care Team Providers Care Pipe Buffer Name Role Phone YANGNATY Unavailable PROBLEMS Unknown Problems ALLERGIES No Information ENCOUNTERS Encounter Location Date Diagnosis [place] [address] [place] [address] May, [place] [address] [place] [id number] [place] [address]- [address] Mar, care in second trimester Z34.92 and 14 weeks gestation of Z3A.14 [place] [address] [place] [id number] [place] [address]- [address] Mar, Normal , first Z34.00 [place] [address] [place] [address]- [address]01 Mar, [place] [address] [place] [id number] [place] [address]- 2653 Feb, Normal , first Z34.00 ; care, first in first trimester Z34.01 and Elderly primigravida in first trimester O09.511 [place] [address] [place] [address]- 8422 Feb, [facility] [address], [place] [address] Feb, [facility] [address] [place] [id number] [place] [address]13- 8203 Feb, [facility] [address], [place] [address] Feb, Encounter for test, result unknown Z32.00 [place] [address] [address] Feb, Irritant contact dermatitis, unspecified trigger L24.9 [facility] [address] [place] [id number] [place] [address]- [address] 24 May, 2016 Poison douglas L23.7 [facility] [address] [place] [id number] [place] [address] 8[address]- 0082 11 Jan, 2015 Routine gynecological examination V72.31 ; Pap test, as part of routine gynecological examination V76.2 ; Breast cancer screening V76.10 and Laboratory exam ordered as part of routine general medical examination V72.62 [facility] [address] [place] [id number] [place] [address] 75184- 5961 10 Jan, 2015 [facility] [address] [place] [id number] [place] [address] 93098- 3616 14 Nov, 2014 [facility] [address] [place] [id number] [place] [address] 51609- 1284 Nov, [facility] [address] [place] [address] 18146- 8842 Jan, [facility] [address] [place] [id number] [place] [address] 81642- 9199 Jan, [facility] [address] [address]- 47[address] Nov, [facility] [address] [place] [address] 71783- 0749 Nov, [facility] [address], [place] [address]- 6816 May, [facility] [address] [place] [id number] [place] [address] 980583- 6656 May, [facility] [address], [place] [address]- [address] May, [facility] [address] [place] [address] 39511- 7578 May, IMMUNIZATIONS No Known Immunizations SOCIAL HISTORY Never Assessed REASON FOR VISIT test (walk-in) PLAN OF CARE VITAL SIGNS MEDICATIONS Unknown Medications RESULTS Name Result Date Reference Range TEST, URINE (IN HOUSE) 2018-02-18 RESULTS Positive Lot # [id number] Control + Exp date 09/2018 PROCEDURES Procedure Date Ordered Result Body Site URINE TEST February 18, 2018 INSTRUCTIONS MEDICATIONS ADMINISTERED No Known Medications MEDICAL (GENERAL) HISTORY Type Description Date Medical History Seasonal Allergies
--- OUTSIDE RECORDS SUMMARY | 2018-09-27 20:50 | XMS REPORT ---
Author Author NATY YANG [facility] Address [address] [place] [address] Care Team Providers Care Food And Drug Inspector Name Role Phone YANGNATY Unavailable PROBLEMS Unknown Problems ALLERGIES No Information ENCOUNTERS Encounter Location Date Diagnosis [place] [address] [place] [address]- [address]324 May, [place] [address] [place] [id number] [place] [address] 62606- 7033 Mar, care in second trimester Z34.92 and 14 weeks gestation of Z3A.14 [place] [address] [place] [id number] [place] [address] 18586- 6810 Mar, Normal , first Z34.00 [place] [address] [place] [address] 93237- 5878 Mar, [place] [address] [place] [id number] [place] [address] 50894- 8640 Feb, Normal , first Z34.00 ; care, first in first trimester Z34.01 and Elderly primigravida in first trimester O09.511 [place] [address] [place] [address] 67673- 0316 Feb, [facility] [address], [place] [address]- 5[address] Feb, [facility] [address] [place] [id number] [place] [address] 79972- 7711 Feb, [facility] [address], [place] [address]- [address] Feb, Encounter for test, result unknown Z32.00 [facility] [address], [place] [address]- 9266 Feb, Irritant contact dermatitis, unspecified trigger L24.9 [facility] [address] [place] [id number] [place] [address] 13027- 9682 24 May, 2016 Poison douglas L23.7 [facility] [address] [place] [id number] [place] [address] 96460- 6179 11 Jan, 2015 Routine gynecological examination V72.31 ; Pap test, as part of routine gynecological examination V76.2 ; Breast cancer screening V76.10 and Laboratory exam ordered as part of routine general medical examination V72.62 [facility] [address] [place] [id number] [place] [address] 25885- 9080 10 Jan, 2015 [facility] [address] [place] [id number] [place] [address] 43266- 7127 14 Nov, 2014 [facility] [address] [place] [id number] [place] [address] 25357- 6002 Nov, [facility] [address] [place] [address] 27358- 7769 Jan, [facility] [address] [place] [id number] [place] [address] 43487- 1730 Jan, [facility] [address], [place] [address]- 4592 Nov, [facility] [address] [place] [address] 56552- 9636 Nov, [facility] [address], [place] [address]- 7413 May, [facility] [address] [place] [id number] [place] [address] 279733- 5777 May, [facility] [address], [place] [address]- 3098 May, [facility] [address] [place] [address] 36462- 5467 May, IMMUNIZATIONS No Known Immunizations SOCIAL HISTORY Never Assessed REASON FOR VISIT Requests return call PLAN OF CARE VITAL SIGNS MEDICATIONS Unknown Medications RESULTS No Results PROCEDURES No Known procedures INSTRUCTIONS MEDICATIONS ADMINISTERED No Known Medications MEDICAL (GENERAL) HISTORY Type Description Date Medical History Seasonal Allergies
[2018-09-27] MEDS: D5 LR IV SOLUTION 1,000 ML IV SCH (21:32)
[2018-09-27 21:50] LABS: BASOPHILS % (AUTO) 0 % (0-10); EOSINOPHILS % (AUTO) 0 % (0-10); HEMATOCRIT 32 % (35-52); HEMOGLOBIN 10.5 G/DL (11.5-16.0); LYMPHOCYTES # (AUTO) 1.9 X 10^3 (1.0-4.0); LYMPHOCYTES % (AUTO) 21 % (12-44); MEAN CORPUSCULAR HEMOGLOBIN 29 PG (25-34); MEAN CORPUSCULAR HGB CONC 33 G/DL (32-36); MEAN CORPUSCULAR VOLUME 87 FL (80-99); MEAN PLATELET VOLUME 10.5 FL (7.4-10.4); MONOCYTES # (AUTO) 0.3 X 10^3 (0.0-1.0); MONOCYTES % (AUTO) 3 % (0-12); NEUTROPHILS # (AUTO) 6.7 X 10^3 (1.8-7.8); NEUTROPHILS % (AUTO) 75 % (42-75); PLATELET COUNT 245 10^3/uL (130-400); RED CELL DISTRIBUTION WIDTH 14.1 % (10.0-14.5); WHITE BLOOD COUNT 8.9 10^3/uL (4.3-11.0)
[2018-09-27] MEDS ORDERED: CATHETER FLUSH 10 ML SYR IV SCH ×2 (22:00)
[2018-09-27 22:10] VITALS: BP 116/75
[2018-09-27 22:40] VITALS: BP 116/73
[2018-09-27 23:45] VITALS: BP 113/66
[2018-09-28] VITALS (42 sets, daily range): BP systolic 100–160; BP diastolic 57–86
[2018-09-28] MEDS: MISOPROSTOL 100 MCG (CYTOTEC) TAB PO SCH ×2 (01:23→05:29)
--- NOTE | 2018-09-28 05:25 | NUR ---
Dr. Moon called and informed that pt is due for another dose of Cytotec at this time. Informed that pt is still 1cm, but is blaise every 1-2 minutes. Contractions palpate moderate at this time. request that I give the next dose of Cytotec at this time. No new orders received.
[2018-09-28] MEDS: D5 LR IV SOLUTION 1,000 ML IV SCH ×2 (05:29→08:20)
[2018-09-28] MEDS ORDERED: FLU QUADRIvalent (5+ YOA) 2018-2019 (AFLURIA) 0.5 ML IM ONE (07:45)
[2018-09-28] MEDS ORDERED: SUFENTA 0.6MCG/ML BUPIVA 0.125 100 ML ONE (07:49)
[2018-09-28] MEDS ORDERED: OXYTOCIN/NORMAL SALINE 500 ML IV SCH (08:22)
--- NOTE | 2018-09-28 11:50 | NUR ---
anesthesia notified of pt's request for epidural placement.
[2018-09-28] MEDS ORDERED: BUPIVACAINE 0.25% 30 ML (SENSORCAINE) VIAL ONE (11:53)
[2018-09-28] MEDS ORDERED: fentaNYL INJECTION 100 MCG/2 ML AMP ONE (11:53)
[2018-09-28] MEDS ORDERED: LACTATED RINGERS 1,000 ML IV ONE (12:35)
[2018-09-28] MEDS ORDERED: diphenhydrAMINE 50 MG/ML INJ (BENADRYL) IV PRN (12:45)
[2018-09-28] MEDS ORDERED: NALOXONE 0.4 MG/ML 1 ML (NARCAN) VIAL IV PRN (12:45)
[2018-09-28] MEDS ORDERED: EPIDURAL (SUFENTA 0.6MCG/ML BUPIVA 0.125%) 100 ML BAG EPI SCH (12:45)
[2018-09-28] MEDS ORDERED: CATHETER FLUSH 10 ML SYR IV PRN (12:45)
[2018-09-28] MEDS ORDERED: ONDANSETRON 4 MG/2 ML (SDV) Z0FRAN IV PRN (12:45)
--- NOTE | 2018-09-28 13:20 | History & Physical-OB ---
OB - Chief Complaint & HPI Date/Time Date of Admission: Date of Admission: Sep 27, 2018 at 19:30 Date seen by a Provider: Sep 28, 2018 Time Seen by a Provider: 12:10 Chief Complaint/History OB-Reason for Admission/Chief: Induction of Labor (Post dates) Hx : 1 Expected Date of Delivery: Sep 23, 2018 Gestational Age in Weeks: 40 Gestational Age in Days: 5 Indication for induction: post dates History of Labs O neg, Ab neg, Rub Non Immune, HIV/RPR/HepB NR, GC/ Chyl neg abnormal 1 hr GTT, Normal 3 hr GTT GBS neg Allergies and Home Medications Allergies Coded Allergies: No Known Drug Allergies (Unverified , 09/27/18) Patient Home Medication List Home Medication List Reviewed: Yes OB - History Hx of Present Care: Yes Ultrasounds: Normal mid trimester US Obstetrical Complications: None Medical Complications: None Obstetrical History Hx : 1 Delivery History Adverse Rxn to Tranfusion: No Patient Past Medical History None Social History/Family History HIV/AIDS: No Recent Infectious Disease Expo: No Sexually Transmitted Disease: No Alcohol Use: Denies Use Recreational Drug Use: No Smoking Cessation: Never smoker Immunizations Hepatitis A: Yes Hepatitis B: Yes Tetanus Booster (TDap): Less than 5yrs (09/21/18) Rubella: not immune RPR/VDRL: Negative GBS Status: Negative HBsAG: Negative OB - Admission Exam Physical Exam Vitals: Vital Signs 09/28/18 09/28/18 08:00 11:15 Temp 97.7 Pulse 59 Resp 18 B/P (MAP) 121/74 (90) O2 Delivery Room Air HEENT: NCAT Heart: Rhythm Normal Lungs: Clear Abdomen: Gravid Cervical Dilatation: 4cm Effacement: 75% Station: 0 Membranes: Intact Amniotic Fluid: Clear Labs Laboratory Tests Test 09/27/18 21:42 Range/Units White Blood Count 8.9 4.3-11.0 10^3/uL Red Blood Count 3.64 L 4.35-5.85 10^6/uL Hemoglobin 10.5 L 11.5-16.0 G/DL Hematocrit 32 L 35-52 % Mean Corpuscular Volume 87 80-99 FL Mean Corpuscular Hemoglobin 29 25-34 PG Mean Corpuscular Hemoglobin Concent 33 32-36 G/DL Red Cell Distribution Width 14.1 10.0-14.5 % Platelet Count 245 130-400 10^3/uL Mean Platelet Volume 10.5 H 7.4-10.4 FL Neutrophils (%) (Auto) 75 42-75 % Lymphocytes (%) (Auto) 21 12-44 % Monocytes (%) (Auto) 3 0-12 % Eosinophils (%) (Auto) 0 0-10 % Basophils (%) (Auto) 0 0-10 % Neutrophils # (Auto) 6.7 1.8-7.8 X 10^3 Lymphocytes # (Auto) 1.9 1.0-4.0 X 10^3 Monocytes # (Auto) 0.3 0.0-1.0 X 10^3 Eosinophils # (Auto) 0.0 0.0-0.3 10^3/uL Basophils # (Auto) 0.0 0.0-0.1 10^3/uL OB - Assessment/Plan/Diagnosis Assessment Assessment: induction of labor Admission Dx Labor Admission Status: Inpatient Order (span 2 midnights) Reason for Inpatient Admission: labor Plan Plan: Induction Other Plan 38 yo G1 @ 40.5 wga here for IOL for post dates Plan - Continue Pitocin today, AROM - GBS neg Copy Copies To 1: RAY MORRISON MD, HOLLY R MD Sep 28, 2018 13:20
[2018-09-28] MEDS ORDERED: LIDOCAINE/EPI 2% 1:200,00 (XYLOCAINE) 10 ML VIAL ONE (13:22)
[2018-09-28] MEDS: OXYTOCIN/NORMAL SALINE 500 ML IV SCH ×2 (13:55→14:25)
[2018-09-28] MEDS ORDERED: WITCH HAZEL(TUCKS) 40 EA JAR TOP PRN (14:45)
[2018-09-28] MEDS ORDERED: TETANUS,DIPTH,PERTUSS P/F (BOOSTRIX) 0.5 ML VIAL IM ONE (14:45)
[2018-09-28] MEDS ORDERED: MEASLES,MUMPS,RUBELLA 1 EA INJ SQ ONE (14:45)
[2018-09-28] MEDS ORDERED: BENZOCAINE/MENTHOL (DERMOPLAST) 56 ML CAN TP PRN (14:45)
--- NOTE | 2018-09-28 14:51 | OB Labor & Delivery Record ---
Vag Delivery Note Vag Delivery Note Date of Delivery: 09/28/18 Preoperative Diagnosis: Aure Handley is a (38 /Para 1 / ,Gestational Age (wks)40.5 wga here for IOL for post dates Postoperative Diagnosis: Same Surgeon: RAY MORRISON Application Support Technician: None Anesthesia: Epidural Delivery Type: @ 1349 Findings: Viable Male , apgars 8/9, weight Lacerations: 2nd Degree Laceration Intact placenta with 3 vessel cord. Nuchal cord x1, body cord or shoulder dystocia Estimated Blood Loss: 150 ml Complications: None Condition: Stable Description of Procedure: The patient is a 38 year old female who presented for IOL. She was admitted and informed consent was obtained. Her labor course was unremarkable. She progressed to complete dilatation and began to push. She was then set up for delivery. The 's head was delivered atraumatically in the JESUS position. The shoulders and remainder of the 's body were then delivered without difficulty. Upon delivery, the head was held below the level of the perineum and the mouth and nares were bulb suctioned. The cord was doubly clamped after 3 min delay and cut by FOB and the infant was placed on maternal abdomen and attended to by pediatric staff. An intact placenta with 3-vessel cord delivered via Yuli and there was found to be minimal bleeding.~ Vigorous fundal massage was performed and the fundus was found to be firm. IV oxytocin was given. Examination of the vagina and perineum revealed a 2nd Degree laceration repaired in the usual fashion with 3-0 vicryl suture. Following the repair, sponge, instrument and needle counts were correct. Mom and baby were both in stable condition in the labor suite. Vitals - Labs Vital Signs - I&O Vital Signs Date Time Temp Pulse Resp B/P (MAP) Pulse Ox O2 Delivery O2 Flow Rate FiO2 09/28/18 11:15 59 18 121/74 (90) Room Air 09/28/18 11:00 70 18 124/86 (99) Room Air 09/28/18 10:45 63 18 119/71 (87) Room Air 09/28/18 10:30 65 18 116/75 (89) Room Air 09/28/18 10:15 18 Room Air 09/28/18 10:00 83 18 115/67 (83) Room Air 09/28/18 09:45 67 18 120/77 (91) Room Air 09/28/18 09:30 67 18 120/77 (91) Room Air 09/28/18 08:45 63 18 129/83 (98) Room Air 09/28/18 08:00 97.7 09/28/18 07:45 56 16 107/62 (77) Room Air 09/28/18 06:45 61 16 119/76 (90) 09/28/18 05:45 98.1 58 16 124/76 (92) 09/28/18 04:45 97.9 77 16 109/74 (86) 09/28/18 03:45 91 16 100/64 (76) 09/28/18 02:45 69 16 118/75 (89) 09/28/18 01:45 97.3 61 16 113/76 (88) 09/28/18 00:45 59 18 114/73 (87) 09/27/18 23:45 97.6 66 18 113/66 (82) 09/27/18 22:40 97.9 76 18 116/73 (87) 09/27/18 22:10 98.1 75 18 116/75 (89) 09/27/18 20:10 98.1 78 18 130/73 (92) I & O 09/28/18 07:00 Intake Total 1000 ml Balance 1000 ml Labs Laboratory Tests 09/27/18 21:42: White Blood Count 8.9, Red Blood Count 3.64L, Hemoglobin 10.5L, Hematocrit 32L, Mean Corpuscular Volume 87, Mean Corpuscular Hemoglobin 29, Mean Corpuscular Hemoglobin Concent 33, Red Cell Distribution Width 14.1, Platelet Count 245, Mean Platelet Volume 10.5H, Neutrophils (%) (Auto) 75, Lymphocytes (%) (Auto) 21 , Monocytes (%) (Auto) 3, Eosinophils (%) (Auto) 0, Basophils (%) (Auto) 0, Neutrophils # (Auto) 6.7, Lymphocytes # (Auto) 1.9, Monocytes # (Auto) 0.3, Eosinophils # (Auto) 0.0, Basophils # (Auto) 0.0 RAY MORRISON MD Sep 28, 2018 14:51
--- NOTE | 2018-09-28 15:30 | NUR ---
FFu/1. moderate rubra noted. remains in arms. appropriate bonding noted.
--- NOTE | 2018-09-28 16:40 | NUR ---
epidural catheter dc'd. color tip intact.
--- NOTE | 2018-09-28 16:44 | NUR ---
regular diet served. family @ side. no c/o's voiced.
[2018-09-28] MEDS: IBUPROFEN 600 MG (MOTRIN) TAB PO SCH ×2 (16:54→22:35)
--- NOTE | 2018-09-28 18:45 | NUR ---
FFu/1. lt rubra noted, no clots expressed. khai-care offered. v-pad and panties in place. gown changed. pt transferred to room 312 via w/c with , infant and service dog @ side. pt stable with no sx's of distress noted.
[2018-09-28] MEDS ORDERED: CATHETER FLUSH 10 ML SYR IV SCH (22:00)
[2018-09-29 01:00] VITALS: BP 115/72
[2018-09-29] MEDS: IBUPROFEN 600 MG (MOTRIN) TAB PO SCH ×3 (01:01→16:09)
[2018-09-29 05:00] VITALS: BP 98/62
[2018-09-29 06:40] LABS: BASOPHILS % (AUTO) 0 % (0-10); EOSINOPHILS % (AUTO) 0 % (0-10); HEMATOCRIT 29 % (35-52); HEMOGLOBIN 9.5 G/DL (11.5-16.0); LYMPHOCYTES # (AUTO) 2.3 X 10^3 (1.0-4.0); LYMPHOCYTES % (AUTO) 21 % (12-44); MEAN CORPUSCULAR HEMOGLOBIN 29 PG (25-34); MEAN CORPUSCULAR HGB CONC 33 G/DL (32-36); MEAN CORPUSCULAR VOLUME 88 FL (80-99); MEAN PLATELET VOLUME 10.5 FL (7.4-10.4); MONOCYTES # (AUTO) 0.6 X 10^3 (0.0-1.0); MONOCYTES % (AUTO) 6 % (0-12); NEUTROPHILS # (AUTO) 7.8 X 10^3 (1.8-7.8); NEUTROPHILS % (AUTO) 72 % (42-75); PLATELET COUNT 193 10^3/uL (130-400); RED CELL DISTRIBUTION WIDTH 13.9 % (10.0-14.5); WHITE BLOOD COUNT 10.8 10^3/uL (4.3-11.0)
[2018-09-29] MEDS ORDERED: PRENATAL VITAMIN 1 EA TAB PO SCH (07:00)
[2018-09-29 08:00] VITALS: BP 112/70
--- NOTE | 2018-09-29 08:00 | NUR ---
A.M. ASSESSMENT COMPLETED. VSS. REFUSED THE FLU AND MMR VACCINES.
--- NOTE | 2018-09-29 08:08 | Discharge Instructions ---
Discharge Inst-Women's Serv Depart Medications New, Converted or Re-Newed RX: Transmitted to Pharmacy Final Diagnosis Term . Follow Up/Instructions Goal/Follow Up: Follow-up with Dr. Moon in 6 weeks for your post- visit. Activity Activity: Activity as Tolerated Driving Instructions: You May Drive NO SMOKING: NO SMOKING Nothing Inside Vagina: No Douching, No [place], No Tampons Diet Discharge Diet: No Restrictions Symptoms to Report to : Bleeding Excessive, Fever Over 101 Degrees F, Vaginal Bleeding Increase, Lightheadedness, Vaginal Discharge Foul For Any Problems or Questions: Contact Your Physician SRIRAM FRANCO MD Sep 29, 2018 08:08
--- NOTE | 2018-09-29 08:13 | Discharge Summary ---
Diagnosis/Chief Complaint Date of Admission Sep 27, 2018 at 19:30 Date of Discharge Sep 29, 2018 at 1700 Admission Diagnosis Admission Diagnosis Term , induction of labor Discharge Diagnosis Induction of labor at 40 weeks 5 days Problems/Diagnosis: (1) Elective induction of labor planned Discharge Summary-OBS Procedures None. Discharge Physical Examination Allergies: Coded Allergies: No Known Drug Allergies (Unverified , 09/27/18) Vitals & I&Os Intake and Output 09/29/18 00:00 Intake Total 2800 ml Balance 2800 ml Vital Sign - Last 12Hours Date Time Temp Pulse Resp B/P (MAP) Pulse Ox O2 Delivery O2 Flow Rate FiO2 09/29/18 05:00 97.9 67 18 98/62 (74) 98 Room Air General Appearance: Alert, Oriented X3 HEENT: Atraumatic Respiratory: Clear to Auscultation Cardiovascular: Regular Rate Abdominal: Soft, Other (fundus firm below umbilicus) Extremities: Other (trace edema) Skin: No Rashes Hospital Course Was the Problem List Reviewed?: Yes Normal delivery and post- care. Labs Laboratory Tests 09/29/18 06:35: White Blood Count 10.8, Red Blood Count 3.26L, Hemoglobin 9.5L, Hematocrit 29L, Mean Corpuscular Volume 88, Mean Corpuscular Hemoglobin 29, Mean Corpuscular Hemoglobin Concent 33, Red Cell Distribution Width 13.9, Platelet Count 193, Mean Platelet Volume 10.5H, Neutrophils (%) (Auto) 72, Lymphocytes (%) (Auto) 21 , Monocytes (%) (Auto) 6, Eosinophils (%) (Auto) 0, Basophils (%) (Auto) 0, Neutrophils # (Auto) 7.8, Lymphocytes # (Auto) 2.3, Monocytes # (Auto) 0.6, Eosinophils # (Auto) 0.0, Basophils # (Auto) 0.0 Discharge Condition at discharge Stable. Instructions to patient/family Please see electronic discharge instructions given to patient. Discharge Medications Reviewed and agree with Discharge Medication list on patient's Discharge Instruction sheet Clinical Quality Measures DVT/VTE Risk/Contraindication: Risk Factor Score Per Nursin RFS Level Per Nursing on Admit: 1=Low/No VTE PPX SRIRAM FRANCO MD Sep 29, 2018 08:13
[2018-09-29] MEDS ORDERED: IBUP-844 PO (08:36)
--- NOTE | 2018-09-29 09:35 | Anesthesia-Regional Post-Op ---
Regional Patient Condition Mental Status: Alert, Oriented x3 Circulation: Same as Pre-Op Headache: Absent Sensation: Full Recovery Motor Block: Absent Post Op Complications Complications None Follow Up Care/Instructions Patient Instructions None needed. Anesthesia/Patient Condition Patient is doing well, no complaints, stable vital signs, no apparent adverse anesthesia problems. No complications reported per nursing. MATTHEW DUDLEY CRNA Sep 29, 2018 09:35
--- NOTE | 2018-09-29 10:00 | NUR ---
CARING FOR INFANT IN ROOM. DOING WELL.
--- NOTE | 2018-09-29 11:30 | NUR ---
SLEEPING QUIETLY. NO APPARENT DISTRESS.
[2018-09-29 12:00] VITALS: BP 110/74
--- NOTE | 2018-09-29 14:00 | NUR ---
CONTINUES TO CARE FOR IN ROOM. GOOD INTERACTION NOTED. HOPING TO GO HOME THIS AFTERNOON.
[2018-09-29 16:00] VITALS: BP 119/77
--- NOTE | 2018-09-29 16:00 | NUR ---
VSS. HOPING TO GO HOME THIS EVENING.
--- NOTE | 2018-09-29 18:00 | NUR ---
DISCHARGE INSTRUCTIONS REVIEWED WITH COPY TO PT. RX FOR IBUPROFEN CALLED TO [facility] PER PT REQUEST. STATES UNDERSTANDING OF ALL INSTRUCTIONS AND NEED TO F/U SCHEDULED AND NEEDED.
[2018-09-29 18:15] VITALS: BP 119/77
--- NOTE | 2018-09-29 18:15 | NUR ---
DISMISSED AMB FROM [facility] WITH IN STABLE CONDITION TO FAMILY CAR ACC BY PARENTS,SPOUSE, AND LASHELL RINCON.
== END 2018-09-29 18:15 | disposition home or self-care (01) | DRG 807 ==
LOC: LDRP 19:30
PROVIDERS: ADMIT Family Medicine; ATTEND Family Medicine
PROC: 3E0DXGC Introduction of Other Therapeutic Substance into Mouth and Pharynx, External Approach (ICD-10-PCS; 2018-09-27)
PROC: 10E0XZZ Delivery of Products of Conception, External Approach (ICD-10-PCS; principal; 2018-09-28)
PROC: 0KQM0ZZ Repair Perineum Muscle, Open Approach (ICD-10-PCS; 2018-09-28)
DX: O48.0 Post-term pregnancy (principal); O69.81X0 Labor and delivery complicated by cord around neck, without compression, not applicable or unspecified; O70.1 Second degree perineal laceration during delivery; Z3A.40 40 weeks gestation of pregnancy; Z37.0 Single live birth
CPT/HCPCS: 36415; 85025; 86850; 86900; 86901